=== PATIENT | female | born 1970 | race Caucasian/White ===

== ENCOUNTER 2016-12-06 00:33 | Emergency (ER) | payer MEDICAID ==
[~2016-12-06] VITALS: Ht 149.9 cm; Wt 49.4 kg
[2016-12-06 00:33] VITALS: BP_SYST 115
[2016-12-06] MEDS ORDERED: KETOROLAC TROMETHAMINE 60 MG/2 ML VIAL IM ONE (01:15)
[2016-12-06 02:00] VITALS: BP_SYST 118
== END 2016-12-06 02:00 | disposition home or self-care (01) ==
LOC: SED 00:33
DX: S16.1XXA Strain of muscle, fascia and tendon at neck level, initial encounter (principal); S00.93XA Contusion of unspecified part of head, initial encounter; M25.522 Pain in left elbow; R03.0 Elevated blood-pressure reading, without diagnosis of hypertension; Z88.6 Allergy status to analgesic agent; W01.0XXA Fall on same level from slipping, tripping and stumbling without subsequent striking against object, initial encounter; Y93.89 Activity, other specified; Y92.89 Other specified places as the place of occurrence of the external cause; Y99.8 Other external cause status
CPT/HCPCS: 70450; 81025; 96372; 99284; J1885